=== PATIENT | female | born 1995 | race Two or more races ===

== ENCOUNTER 2020-12-01 05:18 | Day surgery (SDC) | payer OTHER ==
[2020-12-01] MEDS ORDERED: NAPROXEN SODIU500 M1 PO (12:01)
[2020-12-01] MEDS ORDERED: CODE1TAB37 PO (12:01)
== END 2020-12-01 14:25 | disposition home or self-care (01) ==
LOC: CIR.AMB 05:18
PROVIDERS: ATTEND Obstetrics & Gynecology
DX: Z30.2 Encounter for sterilization (principal); Z20.828 Contact with and (suspected) exposure to other viral communicable diseases